=== PATIENT | female | born 1990 | race Caucasian/White ===

== ENCOUNTER 2024-06-09 18:13 | Emergency (ER) | payer BC ==
[2024-06-09 18:26] VITALS: BP 131/71; PULSE 91; RESP 18; TEMP 99; BMI 28.1
[2024-06-09] MEDS ORDERED: ACETAMINOPHEN 500 MG TABLET (FP) ONE (19:13)
[2024-06-09] MEDS ORDERED: PSEUDOEPHEDRINE HCL 60 MG TABLET ONE (19:14)
[2024-06-09] MEDS: PSEUDOEPHEDRINE HCL 30 MG TABLET PO ONE (19:16)
[2024-06-09] MEDS: ACETAMINOPHEN 500 MG TABLET (FP) PO ONE (19:16)
[2024-06-09 20:09] LABS: THROAT:GRP A STREP NOT DETECTED (NOTDETECTED)
== END 2024-06-09 21:25 | disposition home or self-care (01) ==
LOC: JERFT 18:13
DX: J31.2 Chronic pharyngitis (principal); J22 Unspecified acute lower respiratory infection
CPT/HCPCS: 0241U-QW; 87651; 99283-25